=== PATIENT | female | born 1955 | race Caucasian/White ===

== ENCOUNTER 2022-07-03 08:47 | Outpatient (CLI) | payer MEDICARE ==
--- NOTE | 2022-07-08 10:16 | Mammography Report ---
BILATERAL DIGITAL SCREENING MAMMOGRAM 3D/2D: 07/03/2022 CLINICAL: Routine screening. Comparison is made to exam dated: 02/13/2012 mammogram - [facility]. There are scattered areas of fibroglandular density in both breasts (category b / 25%-50% glandular t issue). No significant masses, calcifications, or other findings are seen in either breast. There has been no significant interval change. IMPRESSION: NEGATIVE There is no mammographic evidence of malignancy. A 1 year screening mammogram is recommended. Based on the Tyrer Cuzick model (a risk assessment model) the patients lifetime risk is 4.6% and her 10 year risk is 2.2%. According to the ACR, ACS, and NCCN guidelines, an annual breast MRI exam tami g with mammogram is recommended if the patients lifetime risk is 20% or greater. This exam was interpreted at Station ID: [id number]. NOTE: For mammograms, a report in lay terms will be sent to the patient. Approximately 15% of breast malignancies will not be visualized mammographically. In the management of a palpable breast mass, a negative mammogram must not discourage biopsy of a clinically suspicious lesion. Electronically Signed By: Nate Alfaro M.D., jr/sandro:07/03/2022 12:03:35 ACR BI-RADS Category 1: Negative 3341F PARENCHYMAL PATTERN: (A) - The breast(s) demonstrate(s) scattered fibroglandular densities. BI-RADS CATEGORY: (1) - 1 RECOMMENDATION: (ANNUAL) - Recommend routine annual screening mammography. [id number] 1 year screening LATERALITY: (B)
== END 2022-07-03 08:48 | disposition home or self-care (01) ==
LOC: DI 08:47
PROVIDERS: ATTEND Registered Nurse
DX: Z12.31 Encounter for screening mammogram for malignant neoplasm of breast (principal)

== ENCOUNTER 2022-07-03 08:49 | Outpatient (CLI) | payer MEDICARE ==
--- NOTE | 2022-07-03 12:31 | DEXA Report ---
PROCEDURE: Dexa Spine and/or Hip INDICATIONS: POST MENOPAUSAL TECHNIQUE: Dual energy x-ray absorptiometry (DXA) was performed on a [facility]. Regions measur ed are the AP Spine, femoral neck, and if needed forearm. COMPARISON: None. FINDINGS: Lumbar Spine: Bone Mineral Density 0.756 g/cm/cm,T score -3.5. Left Femoral Neck: Bone Mineral Density 0.752 g/cm/cm, T score -2.1. Left Hip: Bone Mineral Density 0.741 g/cm/cm,T score -2.1. (T score greater or equal to -1.0: NORMAL) (T score from -1.1 to -2.4: OSTEOPENIA) (T score less than or equal to -2.5 to: OSTEOPOROSIS) Impression: Osteoporosis. Patients with diagnosis of osteoporosis or osteopenia should have regular bone mineral density assess ment. For those eligible for Medicare, routine testing is allowed once every 2 years. Testing frequ ency can be increased for patients who have rapidly progressing disease or for those who are receivin g medical therapy to restore bone mass. Reviewed by: Geoff Meier MD on 07/03/2022 12:29 PM PST Approved by: Geoff Meier MD on 07/03/2022 12:29 PM PST Station ID: [id number]
== END 2022-07-03 08:50 | disposition home or self-care (01) ==
LOC: DI 08:49
PROVIDERS: ATTEND Registered Nurse
DX: M81.0 Age-related osteoporosis without current pathological fracture (principal); Z78.0 Asymptomatic menopausal state

== ENCOUNTER 2022-07-10 09:30 | Outpatient (CLI) | payer MEDICARE ==
[2022-07-10 10:09] LABS: BASOPHILS # (AUTO) 0.1 10^3/uL (0.0-0.1); BASOPHILS % (AUTO) 1.1 %; EOSINOPHILS # (AUTO) 0.3 10^3/uL (0.0-0.7); EOSINOPHILS % (AUTO) 3.9 %; HCT - HEMATOCRIT 47.6 % (37.0-47.0); HGB - HEMOGLOBIN 15.7 g/dL (12.0-16.0); LYMPHOCYTES # (AUTO) 1.4 10^3/uL (1.5-3.5); LYMPHOCYTES % (AUTO) 21.9 %; MEAN CORPUSCULAR VOLUME 84.8 fL (81.0-99.0); MEAN PLATELET VOLUME 11.1 fL (7.9-10.8); MONOCYTES # (AUTO) 0.4 10^3/uL (0.0-1.0); MONOCYTES % (AUTO) 6.7 %; NEUTROPHILS # (AUTO) 4.3 10^3/uL (1.5-6.6); NEUTROPHILS % (AUTO) 66.1 %; PLT - PLATELET COUNT 197 10^3/uL (130-450); RED BLOOD COUNT 5.61 10^6/uL (4.20-5.40); RED CELL DISTRIBUTION WIDTH 13.2 % (12.0-15.0); WHITE BLOOD COUNT 6.5 x10^3/uL (4.8-10.8)
[2022-07-10 10:30] LABS: ALBUMIN 4.8 g/dL (3.2-5.5); ALBUMIN/GLOBULIN RATIO 1.7 (1.0-2.2); ALKALINE PHOSPHATASE 65 IU/L (42-121); ALT ALANINE AMINOTRANSFERASE 14 IU/L (10-60); AST ASPARTATE AMINOTRANSFERASE 16 IU/L (10-42); BILIRUBIN,TOTAL 0.8 mg/dL (0.2-1.0); BUN - BLOOD UREA NITROGEN 15 mg/dL (6-20); CALCIUM 9.2 mg/dL (8.5-10.3); CARBON DIOXIDE - CO2 25 mmol/L (21-32); CHLORIDE 104 mmol/L (101-111); CHOL/HDL RATIO 3.4 (<4.4); CHOLESTEROL 165 mg/dL; CREATININE 0.6 mg/dL (0.4-1.0); GFR - MDRD 100 (>89); GLUCOSE 109 mg/dL (70-100); HDL CHOLESTEROL 49 mg/dL; LDL CHOLESTEROL,CALCULATED 99 mg/dL; SODIUM 137 mmol/L (135-145); TOTAL PROTEIN 7.7 g/dL (6.7-8.2); TRIGLYCERIDES 84 mg/dL; VLDL CHOLESTEROL 17 mg/dL
[2022-07-10 10:41] LABS: THYROID STIMULATING HORMONE 0.53 uIU/mL (0.34-5.60)
--- NOTE | 2022-07-10 17:30 | XRAY Report ---
PROCEDURE: Foot 2 View LT INDICATIONS: PAIN IN LT TOE TECHNIQUE: 2 views of the foot were acquired. COMPARISON: None FINDINGS: Bones: No fractures or dislocations. There is mild osteopenia. Mild osteoarthritic changes are seen throughout left foot. No suspicious bony lesions. Soft tissues: No tibiotalar joint effusion. Achilles tendon appears normal. IMPRESSION: Mild left foot osteoarthritis. No fracture or dislocation. Mild osteopenia. Reviewed by: Geoff Meier MD on 07/10/2022 5:29 PM PST Approved by: Geoff Meier MD on 07/10/2022 5:29 PM [facility] Station ID: [id number]
== END 2022-07-10 09:31 | disposition home or self-care (01) ==
LOC: DI 09:30
PROVIDERS: ATTEND Registered Nurse
DX: M79.676 Pain in unspecified toe(s) (principal); Z13.220 Encounter for screening for lipoid disorders; Z79.899 Other long term (current) drug therapy; M81.0 Age-related osteoporosis without current pathological fracture; Z13.29 Encounter for screening for other suspected endocrine disorder; M19.072 Primary osteoarthritis, left ankle and foot
CPT/HCPCS: 36415; 80053; 80061; 82306; 83721; 84443; 85025